=== PATIENT | female | born 1980 | race Caucasian/White ===

== ENCOUNTER 2024-04-16 19:44 | Emergency (ER) | payer OTHER, SELFPAY ==
--- NOTE | ~2024-04-16 | CT_ITS ---
EXAMINATION: CT ABDOMEN AND PELVIS WITH CONTRAST CLINICAL INFORMATION: Left lower quadrant pain question diverticulitis. COMPARISON: None available. TECHNIQUE: Multidetector volumetric images were obtained from the superior aspect of the liver through the pubic symphysis following administration 85 mL of Omnipaque 350 intravenous contrast. Sagittal and coronal reformatted images were obtained on the technologist's workstation. Oral contrast: No This CT examination was performed using dose optimization techniques as appropriate, variously including the following: *Automated exposure control *Adjustment of mA and/or kV according to patient size (this includes techniques or standardized protocols for targeted exams where dose is matched to indication/reason for exam; i.e. extremities or head) *Use of iterative reconstruction technique DLP: 579 mGy-cm FINDINGS: LUNG BASES: The visualized lung bases are unremarkable. LIVER, GALLBLADDER, AND BILIARY TREE: Focal fat is incidentally noted adjacent to the falciform ligament. Liver is otherwise normal in appearance. The gallbladder is unremarkable with no evidence of radiopaque gallstones, gallbladder wall thickening, or obvious pericholecystic inflammatory changes. PANCREAS: Unremarkable. SPLEEN: Unremarkable. ADRENAL GLANDS: Unremarkable. KIDNEYS AND URETERS: Vague delayed cortical nephrographic enhancement is present in several locations within the superior pole of the left kidney (series 7 image 60, series 3 image 24). No hydronephrosis or perinephric inflammatory changes. No urolithiasis. BLADDER: Unremarkable. GASTROINTESTINAL TRACT: No colonic diverticulosis identified. No intestinal dilatation or mural thickening. Normal appearance of the appendix. No free intraperitoneal fluid or gas collections. Normal appearance of the stomach and duodenum ABDOMINAL WALL: No significant hernia is appreciated. LYMPH NODES: Normal. VASCULAR: Mild scattered calcific atherosclerosis. PELVIC VISCERA: 1.5 cm diameter unilocular. Left adnexal cyst which is overwhelmingly likely to be benign and may be a normal functional cyst. This finding warrants no additional imaging follow-up on the basis of this examination. Normal appearance of the uterus and right ovary. OSSEOUS STRUCTURES: 2 cannulated lag screws are identified within the right femoral neck. No arthropathic changes of the right hip. Marked intervertebral disc space narrowing and vacuum, L5-S1. Partial visualization of a least moderate posterior broad-based disc bulges L4-L5 and L5-S1. CT/CT abdomen pelvis w IV con IMPRESSION: 1. Findings suspicious for acute pyelonephritis of the superior pole of the left kidney. No urolithiasis. No hydronephrosis. Findings are characterized by subtle slightly decreased multifocal cortical enhancement of the superior pole of the left kidney. No perinephric inflammatory changes. 2. No colonic diverticulosis. No evidence of acute diverticulitis. 3. L4-L5 and L5-S1 moderate posterior broad-based disc bulges. Advanced degenerative disc disease at L5-S1. 4. Status post internal fixation of the right femoral neck. No arthropathic changes of the right hip. Electronically signed by: Darci Hunter MD 04/17/2024 03:07 AM EDT
[2024-04-16 20:20] VITALS: BP 138/90; PULSE 73; RESP 16; TEMP 36.8; O2SAT 100; BMI 27.4
--- NOTE | 2024-04-16 20:28 | ED_ITS ---
HPI - General Adult General Chief complaint: Nausea/Vomiting/Diarrhea Stated complaint: abd pain Time Seen by Provider: 04/17/24 00:19 Source: patient Limitations: no limitations History of Present Illness ED Provider: Viridiana Romo PA-C HPI narrative: 43-year-old otherwise healthy female presents with left lower quadrant pain x2 days. Pain is focal to the left lower quadrant, nonradiating and constant. Pain described as sharp at times. Associated nausea vomiting and chills. Denies fever or diarrhea. Denies history of ovarian cysts. Denies related symptoms. Related Data Previous Rx's ?Medication ?Instructions ?Recorded ketorolac 10 mg tablet 10 mg PO Q8H PRN pain #10 tabs 04/17/24 levofloxacin 750 mg tablet 750 mg PO DAILY #9 tabs 04/17/24 Allergies Allergy/AdvReac Type Severity Reaction Status Date / Time No Known Allergies Allergy Verified 04/16/24 20:25 Review of Systems 2 Review of Systems: Yes all other systems are reviewed and are negative Constitutional: Constitutional: Reports chills and Denies fever(s) Cardiovascular: Cardiovascular: Denies chest pain and Denies dyspnea Respiratory: Respiratory: Denies cough and Denies dyspnea Gastrointestinal: Gastrointestinal: Reports abdominal pain, Denies constipation, Denies diarrhea, Reports nausea and Reports vomiting Genitourinary: Genitourinary: Denies dysuria PMF Past Medical History Attestation statement: The following information was validated with the patient. Social History Social History Smoked in Last 30 Days: No Use of substances other than those prescribed or required for medical reasons: No Advance Directives: No Advance Directives Information Provided: No Physical Exam ED Vital Signs: Vital Signs - 24 hr 04/16/24 20:20 04/17/24 00:08 04/17/24 01:51 Temperature 98.2 F 98.2 F 98.4 F Pulse Rate 73 83 81 Respiratory Rate 16 18 18 Blood Pressure 138/90 H 139/94 H 128/83 Pulse Oximetry 100 100 97 Oxygen Delivery Method Room Air Room Air Room Air 04/17/24 04:33 04/17/24 04:41 Temperature 98.4 F 98.4 F Pulse Rate 80 80 Respiratory Rate 18 18 Blood Pressure 121/79 121/79 Pulse Oximetry 97 97 Oxygen Delivery Method Room Air Room Air BMI result Body Mass Index 27.4 Const Other: Alert, appears uncomfortable, Orientation/consciousness: patient oriented x3 Resp Effort & Inspection: normal respiratory effort Cardio Other: Normal peripheral perfusion GI Other: Abdomen is soft, nondistended, mild tenderness noted over left lower quadrant with deep palpation no guarding Other: Deferred pelvic exam, palpation of pelvic region elicits no discomfort, no guarding Skin Other: Warm dry no rash Neuro General: patient oriented x3, no focal motor deficits and CN's II-XI intact bilaterally Psych Other: calm cooperative Course Course Course Narrative: RME: done by AMY Goodman. [age] year female presents to ED for left mid left lower quadrant abdominal pain with headache and subjective fever with night chills. Mild left lower quadrant abdominal pain. Lungs are clear. Labs SARs strep ordered Reevaluation(s) Reevaluation #1: Signed out to night team pending CT scan and final disposition. Medications Administered Discontinued Medications Generic Name Dose Route Start Last Admin Trade Name Freq PRN Reason Stop Dose Admin Sodium Chloride 1,000 mls @ 999 mls/hr 04/17/24 00:30 04/17/24 02:00 Ns IV 04/17/24 01:30 Infused .Q1H1M NEMESIO Infusion Iohexol 85 ml 04/17/24 01:41 04/17/24 01:41 Iohexol 350 Mg/Ml 100 Ml Infus..Btl IV 04/17/24 01:42 85 ml ONCE ONE Administration Ketorolac Tromethamine 15 mg 04/17/24 00:28 04/17/24 00:45 Ketorolac Tromethamine 15 Mg/Ml Vial IVPUSH 04/17/24 00:29 15 mg ONCE ONE Administration Levofloxacin 750 mg 04/17/24 03:44 04/17/24 04:37 Levofloxacin 750 Mg Tablet PO 04/17/24 03:45 750 mg ONCE ONE Administration Ondansetron HCl 4 mg 04/17/24 00:28 04/17/24 00:45 Ondansetron Hcl 4 Mg/2 Ml Vial IVPUSH 04/17/24 00:29 4 mg ONCE ONE Administration Medical Decision Making Medical Decision Making [facility] Narrative: 43-year-old otherwise healthy female presents with left lower quadrant pain x2 days. Pain is focal to the left lower quadrant, nonradiating and constant. Pain described as sharp at times. Associated nausea vomiting and chills. Denies fever or diarrhea. Denies history of ovarian cysts. Denies related symptoms. No chronic issues History: Per patient I have considered the following differential diagnoses: Diverticulitis, UTI, renal colic, torsion Plan: Given distribution of discomfort, I am considering diverticulitis, however she does not have diarrhea, we will obtain a CT scan. Thought about related pathology such as UTI, renal colic and torsion, however her pain is intra-abdominal not pelvic, she has no related symptoms, she also has no history of ovarian cysts. I am deferring a pelvic at this time as it is not clinically warranted. I also do not think she needs a transvaginal ultrasound. We will be giving Toradol Zofran and fluid. I have independently reviewed the following tests: Labs: Slight leukocytosis, not anemic, no electrolyte abnormalities, viral panel negative, not , urine not infected, trace blood, few white blood cells, no nitrite and no bacteria CT abdomen and pelvis: Pending at the time of sign-out I received sign-out from AMY Romo -patient has a UTI, clinically pyelonephritis. -CT scan findings compatible with pyelonephritis.- -patient has mild leukocytosis, UA positive -patient was given the 1st dose of levofloxacin p.o. in the ED Differential Diagnosis Differential Diagnoses: The differential diagnosis associated with the presentation includes (UTI, pyelonephritis, kidney stone, ovarian cyst) Admission/Observation Consideration of admission/observation: Escalation of care including admission/observation considered (Given patient's symptoms, observation was considered) Lab Data 04/16/24 20:30 04/16/24 20:30 Labs: Lab Results 04/16/24 04/17/24 04/17/24 Range/Units 20:30 00:16 00:17 WBC 11.0 H (4.8-10.8) X10*3/uL RBC 4.22 (4.20-5.50) X10*6/uL Hgb 13.6 (12.0-16.0) g/dl Hct 39.6 (37.0-47.0) % MCV 93.8 (80.0-98.0) fL MCH 32.2 (27.0-33.0) pg MCHC 34.3 (31.0-35.0) g/dl RDW 12.5 (11.0-16.0) % Plt Count 301 (160-400) X10*3/uL MPV 8.9 L (9.4-12.3) fL Immature Gran % (Auto) 0.4 (0.0-0.4) % Neut % (Auto) 67.8 (45-73) % Lymph % (Auto) 16.8 L (20-40) % [place] % (Auto) 13.1 H (2-11) % Eos % (Auto) 1.6 (0-4) % Baso % (Auto) 0.3 (0-2) % Lymph # (Auto) 1.8 (1.2-4.9) X10*3/uL [place] # (Auto) 1.4 H (0.1-1.2) X10*3/uL Eos # (Auto) 0.2 (0.0-0.4) X10*3/uL Baso # (Auto) 0.0 (0.0-0.2) X10*3/uL Abs Immat Gran (auto) 0.04 H (0.00-0.03) X10*3/uL Absolute Neuts (auto) 7.4 (2.0-8.3) x10*3/uL Absolute Nucleated RBC 0.000 (0.0-0.012) X10*3/uL Nucleated RBC % (auto) 0.0 (0.0-0.2) /100WBC Sodium 141 (135-145) mmol/L Potassium 4.0 (3.3-5.1) mmol/L Chloride 105 (96-108) mmol/L Carbon Dioxide 28 (22-29) mmol/L Anion Gap 12 (12-20) BUN 9 (9-16) mg/dL Creatinine 0.76 (0.5-1.4) mg/dL Estim Creat Clear Calc 102.1 Estimated GFR > 60 Random Glucose 128 H (60-115) mg/dL Calcium 8.5 (8.4-10.2) mg/dL Total Bilirubin 0.3 (0.0-1.0) mg/dL AST 56 H (5-31) U/L ALT 65 H (0-31) U/L Alkaline Phosphatase 76 (39-117) U/L Total Protein 6.8 (6.5-8.0) g/dL Albumin 3.6 (3.5-5.0) g/dL Lipase 19 (8-78) U/L Beta HCG, Quant < 2 mIU/mL Urine Color Yellow Urine Appearance Cloudy Urine pH 6.0 (5.0-9.0) Ur Specific [place] 1.010 (1.005-1.025) Urine Protein Negative (Neg-Trace) mg/dL Urine Glucose (UA) Negative (Negative) mg/dL Urine Ketones Negative (Negative) mg/dL Urine Blood Trace H (Negative) Urine Nitrite Negative (Negative) Ur Leukocyte Esterase Large (3+) H (Negative) Urine RBC 0-2 (0-2) /HPF Urine WBC >50 H (0-5) /HPF Ur Squamous Epith Cells 11-20 (0-2) /HPF Urine Bacteria 2+ (None Seen) Hyaline Casts 0-2 (0-2) /LPF Urine Test NEGATIVE (NEGATIVE) Influenza Type A (PCR) NEGATIVE (Negative) Influenza Type B (PCR) NEGATIVE (Negative) RSV RNA Qual (PCR) NEGATIVE (Negative) SARS-CoV-2 RNA (RT-PCR) NEGATIVE (Negative) S. pyogenes GrpA MARVIN Negative (Negative) Discharge Plan Discharge Clinical Impression: Pyelonephritis Patient Disposition: Home, Self-Care Instructions: Kidney Infection (ED) Additional Instructions: Please follow-up with your primary care physician tomorrow. If you have any worsening or new symptoms, please return to the emergency room or call 911 Prescriptions: New levofloxacin 750 mg tablet 750 mg PO DAILY Qty: 9 0RF ketorolac 10 mg tablet 10 mg PO Q8H PRN (Reason: pain) Qty: 10 0RF Rx Instructions: maximum total duration of 5 days from all oral, intranasal, or parenteral formulations. Do not use this medication with NSAIDs Stand Alone Forms: Work/School Release Interventions: ED Discharge Assessment Last Done: 04/17/24 04:41 Discharge Date/Time: 04/17/24 04:42 Print Language: Turkmen
[2024-04-16 20:35] LABS: MANUAL DIFF FLAG NO
[2024-04-16 20:36] LABS: Basophils Percent Auto 0.3 % (0-2); Eosinophils Absolute Auto 0.2 X10*3/uL (0.0-0.4); Eosinophils Percent Auto 1.6 % (0-4); Hematocrit 39.6 % (37.0-47.0); Hemoglobin 13.6 g/dl (12.0-16.0); Imm Gran Abs Auto 0.04 X10*3/uL (0.00-0.03); Imm Gran Pct Auto 0.4 % (0.0-0.4); Lymphocytes Absolute Auto 1.8 X10*3/uL (1.2-4.9); Lymphocytes Percent Auto 16.8 % (20-40); Mean Corpuscular HGB Conc 34.3 g/dl (31.0-35.0); Mean Corpuscular Hemoglobin 32.2 pg (27.0-33.0); Mean Corpuscular Volume 93.8 fL (80.0-98.0); Mean Platelet Volume 8.9 fL (9.4-12.3); Monocytes Absolute Auto 1.4 X10*3/uL (0.1-1.2); Monocytes Percent Auto 13.1 % (2-11); Neutrophils Absolute Auto 7.4 x10*3/uL (2.0-8.3); Neutrophils Percent Auto 67.8 % (45-73); Platelet Count 301 X10*3/uL (160-400); Red Blood Count 4.22 X10*6/uL (4.20-5.50); Red Cell Distribution Width 12.5 % (11.0-16.0)
[2024-04-16 20:47] LABS: IDNOW Serial# 6674DD1D; Strep A Nucleic Acid Negative (Negative)
[2024-04-16 20:57] LABS: Alanine Aminotransferase 65 U/L (0-31); Albumin Level 3.6 g/dL (3.5-5.0); Alkaline Phosphatase 76 U/L (39-117); Anion Gap 12 (12-20); Aspartate Amino Transferase 56 U/L (5-31); Bilirubin Total 0.3 mg/dL (0.0-1.0); Blood Urea Nitrogen 9 mg/dL (9-16); Calcium 8.5 mg/dL (8.4-10.2); Carbon Dioxide 28 mmol/L (22-29); Chloride 105 mmol/L (96-108); Creatinine Clr Calc Pharmacy 102.1; Estimated Glomerular Filt Rate > 60; Glucose Random 128 mg/dL (60-115); HCG Quantitative < 2 mIU/mL; Lipase 19 U/L (8-78); Sodium 141 mmol/L (135-145); Total Protein 6.8 g/dL (6.5-8.0)
[2024-04-16 21:13] LABS: Influenza A PCR NEGATIVE (Negative); Influenza B PCR NEGATIVE (Negative); Resp Syncy Virus RNA Qual PCR NEGATIVE (Negative); SARS COV2 PCR INHOUSE NEGATIVE (Negative)
[2024-04-17 00:08] VITALS: BP 139/94; PULSE 83; RESP 18; TEMP 36.8; O2SAT 100
[2024-04-17 00:23] LABS: Appearance Urine Cloudy; Color Urine Yellow; Glucose Urine UA Negative (Negative); Leukocyte Esterase Urine Large (3+) (Negative); Nitrite Urine Negative (Negative); UMIC TRIGGER UACC YES; Urine Blood Trace (Negative); Urine Ketones Negative (Negative); Urine Protein Negative (Neg-Trace)
[2024-04-17 00:26] LABS: UPreg QC Valid YES; Urine Pregnancy NEGATIVE (NEGATIVE)
[2024-04-17 00:28] LABS: Bacteria Urine 2+ (None Seen); Hyaline Casts Urine 0-2 /LPF (0-2); RBC Urine 0-2 /HPF (0-2); UACC Culture Trigger YES; WBC Urine >50 /HPF (0-5)
[2024-04-17] MEDS: 0.9 % Sodium Chloride 1,000 ML 999 ML IV (00:41)
[2024-04-17] MEDS: ondansetron HCL 4 MG/2 ML VIAL IVPUSH (00:45)
[2024-04-17] MEDS: Ketorolac Tromethamine 15 MG/ML VIAL IVPUSH (00:45)
[2024-04-17] MEDS: iohexoL 350 MG/ML 100 ML INFUS..BTL 85 ML IV (01:41)
[2024-04-17 01:51] VITALS: BP 128/83; PULSE 81; RESP 18; TEMP 36.9; O2SAT 97
[2024-04-17 04:33] VITALS: BP 121/79; PULSE 80; RESP 18; TEMP 36.9; O2SAT 97
[2024-04-17] MEDS: levoFLOXacin 750 MG TABLET PO (04:37)
[2024-04-17 04:41] VITALS: BP 121/79; PULSE 80; RESP 18; TEMP 36.9; O2SAT 97
== END 2024-04-17 04:42 | disposition home or self-care (01) ==
PROVIDERS: Physician Assistant; Emergency Provider Emergency Medicine
DX: N12 Tubulo-interstitial nephritis, not specified as acute or chronic (principal); R10.32 Left lower quadrant pain; Z03.818 Encounter for observation for suspected exposure to other biological agents ruled out; R11.2 Nausea with vomiting, unspecified; R51.9 Headache, unspecified
CPT/HCPCS: 0241U; 74177; 80053; 81001; 81025; 83690; 84702; 85025; 87086; 87088; 87186; 87651; 96361; 96374; 96375; 99285; J1885; J2405; Q9967